=== PATIENT | male | born 1965 | race African-American/Black ===

== ENCOUNTER 2017-04-03 11:16 | Emergency (ER) | payer OTHER ==
--- NOTE | ~2017-04-03 | CR72 ---
[facility] A Service of [facility] & [facility] RADIOLOGY TEXT RESULTS PATIENT: PO SKINNER LOCATION: [facility] : 61 UNIT #: [id number] AGE: [address]: Vince Ahn MD SEX: M ORDER DR: [id number] [facility] [address] [place], [place] [address] [id number] E MR#: [id number] Acc #: [id number] NAME: PO SKINNER : 1965 SEX: M STUDY DATE/TIME: 04/03/2017 11:50 UNIT: [facility] ROOM: STUDY DESCRIPTION: CR Chest Single View Portable Attending Physician: Vince Ahn M.D. Ordering Physician: Vince Ahn M.D. Primary Care Physician: No Primary Care Physician MEDICAL IMAGING REPORT This report is preliminary unless electronic signature is present EXAM Portable chest HISTORY Shortness of breath for one day. COMPARISON 10/28/2016 FINDINGS Slight low volume inspiration low volume inspiration. No evidence of acute appearing infiltrate. Heart size normal. IMPRESSION No active disease. Dictated by... Yoel Lyn M.D. THIS IS AN ELECTRONICALLY VERIFIED REPORT Yoel Lyn M.D. at 04/04/2017 3:48 PM ARS/connor TD: 04/03/2017 23:05 JOB #: [id number] MEDICAL IMAGING REPORT Page 1 of 1 COPY
--- NOTE | ~2017-04-03 | EKG ---
PATIENT: PO SKINNER UNIT #: [id number] Ventricular Rate: 78 BPM Atrial Rate: 78 BPM P-R Interval: 156 ms QRS Duration: 90 ms Q-T Interval: 402 ms QTC Calculation(Bezet): 458 ms P [place]: 11 degrees Calculated R [place]: 35 degrees Calculated T [place]: 15 degrees Diagnosis Line: Normal sinus rhythm Diagnosis Line: Nonspecific T wave abnormality Diagnosis Line: Abnormal ECG Diagnosis Line: When compared with ECG of 28-OCT-2016 06:27, Diagnosis Line: No significant change was found Diagnosis Line: Confirmed by RYLEY LASSITER MD ([id number]) on Diagnosis Line: 04/05/2017 8:35:40 AM INTERPRETING MD: MAIKOL NINA
[2017-04-03 12:16] LABS: POC - CKMB 5.2 ng/mL (0.0-7.9); POC - TROPONIN <0.05 ng/mL (<=0.05)
[2017-04-03 12:25] LABS: BASOPHIL# 0.1 X10e3 (0-0.3); BASOPHIL% 1.5 % (0-2.5); EOSINOPHIL# 0.3 X10e3 (0-0.7); HEMATOCRIT 46.4 % (38.0-50.0); HEMOGLOBIN 14.9 gm/dL (13.0-16.0); LYMPHOCYTE# 1.8 X10e3 (1.0-3.5); LYMPHOCYTE% 21.9 % (17.0-45.0); MEAN CELL VOLUME 88.7 FL (83-96); MEAN CORPUSCULAR HEMOGLOBIN 28.4 PG (28-34); MEAN PLATELET VOLUME 10.6 FL (6.5-11.5); MONOCYTE# 0.6 X10e3 (0-1.0); MONOCYTE% 7.4 % (3.0-12.0); NEUTROPHIL# 5.6 X10e3 (1.5-7.1); NEUTROPHIL% 66.2 % (40-75); RED BLOOD COUNT 5.23 X10e (3.90-5.60); RED CELL DISTRIBUTION WIDTH 13.4 % (11.0-15.5); WHITE BLOOD COUNT 8.4 X10e3 (4.0-10.5)
[2017-04-03 12:39] LABS: DIFF IND NO; PLATELET COUNT 162 X10e3 (140-420)
[2017-04-03 13:02] LABS: ALBUMIN SERUM 4.4 g/dL (3.5-5.0); BILIRUBIN, DIRECT 0.1 mg/dL (0.0-0.2); BILIRUBIN,INDIRECT 0.9 mg/dL (0.0-0.9); BUN/CREATININE RATIO 11.11; CALCIUM SERUM 9.3 mg/dL (8.4-10.2); CREATININE SERUM 0.9 mg/dL (0.6-1.4); GLOM FILT RATE Estimated 112.6 mL/min (>60); POTASSIUM 3.7 mmol/L (3.5-5.1); PROTEIN TOTAL SERUM 7.5 g/dL (6.0-8.3)
== END 2017-04-03 14:14 | disposition home or self-care (01) ==
LOC: CED 11:16
PROVIDERS: Emergency Medicine
DX: J98.01 Acute bronchospasm (principal); F17.210 Nicotine dependence, cigarettes, uncomplicated
CPT/HCPCS: 36415; 71010; 80048; 80076; 82553; 84484; 85025; 87040; 93005; 94644; 96374; 99284; J2930